=== PATIENT | male | born 1980 ===

== ENCOUNTER 2018-02-28 10:26 | Emergency (ER) | payer OTHER ==
[2018-02-28 10:35] VITALS: TEMP 97.9; O2SAT 96
[2018-02-28] MEDS ORDERED: Lidocaine 5% Patch TD STA (11:18)
--- NOTE | 2018-02-28 11:21 | C.PDOC ---
History Of Present Illness 37 year old male presents to the ER with a complaint of exacerbation of his chronic lower back pain. 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 Patient reports he has been taking advil at home with minimal relief. Denies recent injury, back surgery, weakness, numbness, dysuria, hematuria, or incontinence. Time Seen by Provider: 02/28/18 10:39 Chief Complaint (Nursing): Back Pain History Per: Patient History/Exam Limitations: no limitations Onset/Duration Of Symptoms: Days Current Symptoms Are (Timing): Still Present Quality Of Discomfort: Unable To Describe Previous Symptoms: Back Pain, Chronic Pain Associated Symptoms: None Exacerbating Factor(s): Nothing Recent travel outside of the [place]: No Past Medical History Reviewed: Historical Data, Nursing Documentation, Vital Signs Vital Signs: Last Vital Signs Temp 97.9 F 02/28/18 10:33 Pulse 90 02/28/18 12:30 Resp 18 02/28/18 12:30 BP 135/81 02/28/18 12:30 Pulse Ox 96 02/28/18 12:30 - Medical History PMH: Back Problems Surgical History: No Surg Hx Family History: States: Unknown Family Hx - Social History Hx Alcohol Use: Yes Hx Substance Use: No - Immunization History Hx Influenza Vaccination: No Review Of Systems Genitourinary: Negative for: Dysuria, Incontinence, Hematuria Musculoskeletal: Positive for: Back Pain Neurological: Negative for: Weakness, Numbness Physical Exam - Physical Exam Appears: Non-toxic, No Acute Distress Skin: Normal Color, Warm, Dry Head: Atraumatic, Normacephalic Eye(s): bilateral: Normal Inspection, EOMI Neck: Normal ROM Chest: Symmetrical Back: No CVA Tenderness, No Vertebral Tenderness, No Paraspinal Tenderness, No Other (Bulging, swelling, or rash) Extremity: Normal ROM (x4) Neurological/Psych: Oriented x3, Normal Speech, Normal Motor, Normal Sensation Gait: Steady ED Course And Treatment O2 Sat by Pulse Oximetry: 96 (Room air) Pulse Ox Interpretation: Normal Medical Decision Making Medical Decision Making: Plan: * Toradol * Valium * Lidoderm Re-Eval: Patient states pain mildly improved. He is ambulatory with steady gait and minimal discomfort. Rx given. Recommend rest, heat and anagesics. Work note provided. Disposition Counseled Patient/Family Regarding: Diagnosis, Need For Followup, Rx Given - Disposition Referrals: Carmelita Heaton MD [Staff Provider] - Disposition: HOME/ ROUTINE Disposition Time: 12:25 Condition: IMPROVED Additional Instructions: Follow up with the clinic in 2-5 days for further evaluation. Take medications as prescribed. Return to the emergency department at any time if symptoms persist or worsen. 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 - Scribe Statement The provider has reviewed the documentation as recorded by the Scribpaul Cordero All medical record entries made by the Leliaibpaul were at my direction and personally dictated by me. I have reviewed the chart and agree that the record accurately reflects my personal performance of the history, physical exam, medical decision making, and the department course for this patient. I have also personally directed, reviewed, and agree with the discharge instructions and disposition.
[2018-02-28] MEDS ORDERED: Lidocaine 5% Patch TD ONE (11:36)
[2018-02-28 12:31] VITALS: BP 135/81; PULSE 90; RESP 18
== END 2018-02-28 12:31 | disposition home or self-care (01) ==
LOC: C.ER 10:26
DX: S39.012A Strain of muscle, fascia and tendon of lower back, initial encounter (principal); X58.XXXA Exposure to other specified factors, initial encounter
CPT/HCPCS: 96372; 99283; J1885

== ENCOUNTER 2018-03-18 12:08 | Emergency (ER) | payer OTHER ==
[2018-03-18 12:15] VITALS: RESP 18; TEMP 98.7
[2018-03-18] MEDS ORDERED: Lidocaine 5% Patch TD STA (12:32)
[2018-03-18] MEDS ORDERED: Lidocaine 5% Patch TD ONE (12:42)
--- NOTE | 2018-03-18 12:56 | C.PDOC ---
History Of Present Illness 37-year-old male, presents to the emergency department with complaints of lower back pain, that started after heavy lifting at work. Patient states he ran out of pain meds, and took Tramadol which didn't help and made him feel nauseated. He denies numbness/weakness, incontinence, or any other associated symptoms. No other complaints at this time. Time Seen by Provider: 03/18/18 12:21 Chief Complaint (Nursing): Back Pain History Per: Patient History/Exam Limitations: no limitations Past Medical History Reviewed: Historical Data, Nursing Documentation, Vital Signs Vital Signs: Last Vital Signs Temp 98.7 F 03/18/18 13:39 Pulse 86 03/18/18 13:39 Resp 18 03/18/18 13:39 BP 124/68 03/18/18 13:39 Pulse Ox 100 03/18/18 13:39 - Medical History PMH: Back Problems Family History: States: No Known Family Hx - Social History Hx Alcohol Use: Yes Hx Substance Use: No - Immunization History Hx Influenza Vaccination: No Review Of Systems Constitutional: Negative for: Fever Musculoskeletal: Positive for: Back Pain Neurological: Negative for: Weakness, Numbness Physical Exam - Physical Exam Appears: Non-toxic, No Acute Distress Skin: Normal Color, Warm, Dry, No Rash Head: Normacephalic Eye(s): bilateral: PERRL Nose: Normal Oral Mucosa: Moist Lips: Normal Appearing Neck: Normal ROM Chest: Symmetrical Cardiovascular: Rhythm Regular, No Murmur Respiratory: Normal Breath Sounds, No Accessory Muscle Use Back: Paraspinal Tenderness (lumbar) Extremity: Normal ROM, No Deformity, No Swelling Neurological/Psych: Oriented x3, Normal Speech ED Course And Treatment O2 Sat by Pulse Oximetry: 99 (RA) Pulse Ox Interpretation: Normal Medical Decision Making Medical Decision Making: Impression: Low back pain Plan: * Lidoderm, Toradol, Valium * XR LS Spine Reassess and Disposition Patient reported relief of pain. Patient remained well in no distress. Rx given. Advise follow up in the clinic Disposition Counseled Patient/Family Regarding: Diagnosis, Need For Followup, Rx Given - Disposition Referrals: [facility] [Outside] [facility] [Outside] Disposition: HOME/ ROUTINE Disposition Time: 13:23 Condition: STABLE Additional Instructions: You can apply heat to area Take Tylenol 500mg for any pain Take Flexeril every 8 hours as needed for muscular pain and spasm, caution may cause drowsiness Prescriptions: Cyclobenzaprine [Cyclobenzaprine HCl] 10 mg PO TID #21 tab Naproxen [Naprosyn] 1 tab PO BID PRN #25 tab PRN Reason: Pain Instructions: Low Back Pain in Adults Forms: [employer] [facility] (Cayman Islander) - POA Present On Arrival: None - Clinical Impression Clinical Impression: Low back pain - Scribe Statement The provider has reviewed the documentation as recorded by the Scribe (Daly Cortés) All medical record entries made by the Scribe were at my direction and personally dictated by me. I have reviewed the chart and agree that the record accurately reflects my personal performance of the history, physical exam, medical decision making, and the department course for this patient. I have also personally directed, reviewed, and agree with the discharge instructions and disposition.
[2018-03-18 13:40] VITALS: BP 124/68; PULSE 86
--- NOTE | 2018-03-18 14:26 | RAD ---
PROCEDURE: Radiographs of the Lumbar Spine. HISTORY: Low back pain COMPARISON: No prior. FINDINGS: BONES: Normal alignment. No listhesis. No fracture. DISC SPACES: Disc space heights maintained. Small marginal anterior osteophytes formation seen along the anterior superior corners of the L5 and L4 segments. Facet joints are mildly hypertrophic at the L5-S1 through the L2-L3 levels in decreasing order of severity OTHER FINDINGS: None. IMPRESSION: No acute fractures. Mild degenerative spondylosis as above
[2018-03-18 14:52] VITALS: O2SAT 99
== END 2018-03-18 13:40 | disposition home or self-care (01) ==
LOC: C.ER 12:08
DX: M54.5 Low back pain (principal)
CPT/HCPCS: 72100; 96372; 99284; J1885

== ENCOUNTER 2018-05-13 23:29 | Emergency (ER) | payer OTHER ==
--- NOTE | 2018-05-14 00:28 | C.PDOC ---
History Of Present Illness 37 year old male with PMHx of chronic back pain presents to the ED c/o lower back pain for the past 2-3 days. Patient reports he recently relocated from [place] and has no PMD at this time. Patient has been seen twice in the ED for similar complaints and given medication here. Patient reports OTC pain medication no longer helping with pain. Patient is also c/o nasal congestion, itchy throat and is requesting allergy medications. Patient denies fever, chill , nausea, vomit, diarrhea, rash. Time Seen by Provider: 05/14/18 00:03 Chief Complaint (Nursing): Back Pain History Per: Patient History/Exam Limitations: no limitations Onset/Duration Of Symptoms: Days Current Symptoms Are (Timing): Still Present Quality Of Discomfort: "Pain" Previous Symptoms: Back Pain Recent travel outside of the [facility]: No Additional History Per: Patient Past Medical History Reviewed: Historical Data, Nursing Documentation, Vital Signs Vital Signs: Last Vital Signs Temp 98.1 F 05/14/18 00:56 Pulse 97 H 05/14/18 00:56 Resp 14 05/14/18 00:56 BP 110/70 05/14/18 00:56 Pulse Ox 98 05/14/18 00:56 - Medical History PMH: Back Problems Surgical History: No Surg Hx Family History: States: Unknown Family Hx - Social History Hx Alcohol Use: Yes Hx Substance Use: No - Immunization History Hx Influenza Vaccination: No Review Of Systems Constitutional: Negative for: Fever, Chills ENT: Positive for: Nose Congestion, Throat Pain. Negative for: Nose Discharge Cardiovascular: Negative for: Chest Pain, Palpitations Respiratory: Negative for: Cough, Shortness of Breath Gastrointestinal: Negative for: Nausea, Vomiting, Abdominal Pain Genitourinary: Negative for: Incontinence Musculoskeletal: Positive for: Back Pain Physical Exam - Physical Exam Appears: Non-toxic, No Acute Distress Skin: Normal Color, Warm, Dry Head: Atraumatic, Normacephalic Eye(s): bilateral: Normal Inspection Oral Mucosa: Moist Neck: Normal ROM, Supple Chest: Symmetrical Cardiovascular: Rhythm Regular Respiratory: Normal Breath Sounds, No Rales, No Rhonchi, No Wheezing Gastrointestinal/Abdominal: Soft, No Tenderness, No Guarding, No Rebound Back: Paraspinal Tenderness (paralumbar b/l), No Straight Leg Raising Extremity: Normal ROM, No Tenderness, No Swelling Neurological/Psych: Oriented x3, Normal Speech, Normal Motor, Normal Sensation Gait: Steady ED Course And Treatment O2 Sat by Pulse Oximetry: 97 (ON RA) Pulse Ox Interpretation: Normal Progress Note: Plan: - Flexeril 10 mg PO. - Toradol 30 mg IM. Patient was strongly advised to follow up with clinic. On reassessment, patient is resting comfortably, with improvement of back pain. Patient remains afebrile, with no bony tenderness, extremity numbness or weakness, or abdominal pain. Patient is ambulatory in the emergency department with no signs of discomfort. Patient was advised to follow up with physician/clinic in 1-2 days. Disposition Counseled Patient/Family Regarding: Diagnosis, Need For Followup, Rx Given - Disposition Referrals: [facility] [Outside] Disposition: HOME/ ROUTINE Disposition Time: 00:24 Condition: STABLE Additional Instructions: Take medications prescribed Follow up in clinic Return to ER if worse Prescriptions: Cetirizine HCl [Zyrtec] 10 mg PO DAILY #20 capsule Cyclobenzaprine [Cyclobenzaprine HCl] 10 mg PO HS #10 tab Ibuprofen [Motrin] 600 mg PO Q6H #24 tab Mometasone Furoate [Nasonex] 1 spray NS BID #1 bottle Forms: [employer] (Maltese) - Clinical Impression Clinical Impression: Low back pain, Allergic rhinitis - 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 - Scribe Statement The provider has reviewed the documentation as recorded by the Scribe Og Espinoza All medical record entries made by the Scribe were at my direction and personally dictated by me. I have reviewed the chart and agree that the record accurately reflects my personal performance of the history, physical exam, medical decision making, and the department course for this patient. I have also personally directed, reviewed, and agree with the discharge instructions and disposition.
[2018-05-14 00:58] VITALS: BP 110/70; PULSE 97; RESP 14; TEMP 98.1
[2018-05-14 02:37] VITALS: O2SAT 97
== END 2018-05-14 00:56 | disposition home or self-care (01) ==
LOC: C.ER 23:29 → SUPCPDRO 23:29 → C.ER 05-14 00:56
DX: M54.5 Low back pain (principal); J30.9 Allergic rhinitis, unspecified
CPT/HCPCS: 96372; 99284; J1885

== ENCOUNTER 2018-07-04 21:49 | Emergency (ER) | payer OTHER ==
[2018-07-04 21:57] VITALS: BP 133/73; PULSE 80; RESP 14; TEMP 98.3; O2SAT 98
--- NOTE | 2018-07-04 23:00 | C.PDOC ---
History Of Present Illness intermittent x 5 mo worse at work bc heavy lifting. no wkness numbness incont mbenthol and uk otc meds no relief. ex paralui,mbar tend bl no vert spine tend nl strength no straight leg coft in er nl gait fu clinic and meds for home. Time Seen by Provider: 07/04/18 22:08 Chief Complaint (Nursing): Back Pain Past Medical History Vital Signs: Last Vital Signs Temp 98.3 F 07/04/18 21:54 Pulse 80 07/04/18 21:54 Resp 14 07/04/18 21:54 BP 133/73 07/04/18 21:54 Pulse Ox 98 07/04/18 21:54 - Medical History PMH: Back Problems Family History: States: Unknown Family Hx - Social History Hx Alcohol Use: Yes Hx Substance Use: No - Immunization History Hx Influenza Vaccination: No ED Course And Treatment O2 Sat by Pulse Oximetry: 98 Disposition - Disposition Forms: [employer] (Chinese)
--- NOTE | 2018-07-04 23:03 | C.PDOC ---
History Of Present Illness 37yo male, comes to ER for evaluation of intermittent lower back pain x 5 months. Patient states the pain recently worsened as he was doing heavy lifting at work. He denies any trauma, weakness, numbness, bowel/bladder incontinence. Patient used a menthol cream and took unknown OTC pain medications with no relief. No other complaints. Time Seen by Provider: 07/04/18 22:08 Chief Complaint (Nursing): Back Pain History Per: Patient History/Exam Limitations: no limitations Onset/Duration Of Symptoms: Intermittent Episodes Current Symptoms Are (Timing): Still Present Quality Of Discomfort: "Pain" Associated Symptoms: None. denies: Incontinence, New Weakness, New Numbness Additional History Per: Patient Past Medical History Reviewed: Historical Data, Nursing Documentation, Vital Signs Vital Signs: Last Vital Signs Temp 98.3 F 07/04/18 21:54 Pulse 80 07/04/18 21:54 Resp 14 07/04/18 21:54 BP 133/73 07/04/18 21:54 Pulse Ox 98 07/04/18 23:05 - Medical History PMH: Back Problems Surgical History: No Surg Hx Family History: States: Unknown Family Hx - Social History Hx Alcohol Use: Yes Hx Substance Use: No - Immunization History Hx Influenza Vaccination: No Review Of Systems Except As Marked, All Systems Reviewed And Found Negative. Genitourinary: Negative for: Dysuria, Incontinence, Hematuria Musculoskeletal: Positive for: Back Pain Neurological: Negative for: Weakness, Numbness Physical Exam - Physical Exam Appears: Non-toxic, No Acute Distress Skin: Normal Color Head: Atraumatic, Normacephalic Eye(s): bilateral: Normal Inspection Neck: Supple Chest: Symmetrical Cardiovascular: Rhythm Regular Respiratory: Normal Breath Sounds Back: No CVA Tenderness, No Vertebral Tenderness, Paraspinal Tenderness ( paralumbar tenderness), No Straight Leg Raising Extremity: Normal ROM, No Tenderness, No Pedal Edema, No Deformity Neurological/Psych: Oriented x3, Normal Motor, Normal Sensation Gait: Steady ED Course And Treatment O2 Sat by Pulse Oximetry: 98 (RA) Pulse Ox Interpretation: Normal Progress Note: Patient noted to be in no acute distress in ER. Patient given prescription for pain medications and instructed to follow up in clinic in 2-3 days. Disposition Counseled Patient/Family Regarding: Diagnosis, Need For Followup, Rx Given - Disposition Referrals: 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 - Scribe Statement The provider has reviewed the documentation as recorded by the Angel Easton Provider Attestation: All medical record entries made by the Angel were at my direction and personally dictated by me. I have reviewed the chart and agree that the record accurately reflects my personal performance of the history, physical exam, medical decision making, and the department course for this patient. I have also personally directed, reviewed, and agree with the discharge instructions and disposition.
== END 2018-07-04 23:11 | disposition home or self-care (01) ==
LOC: C.ER 21:49
DX: M54.5 Low back pain (principal)

== ENCOUNTER 2018-08-21 13:02 | Emergency (ER) | payer OTHER ==
[2018-08-21 13:15] VITALS: BP 128/52; PULSE 90; RESP 16; TEMP 98.1; O2SAT 98
[2018-08-21] MEDS ORDERED: Bacitracin 500 Units/gm Oint Foilpak UD TOP ONE (13:39)
[2018-08-21] MEDS ORDERED: Bacitracin 500 Units/gm Oint Foilpak UD ONE (13:53)
--- NOTE | 2018-08-21 14:19 | C.PDOC ---
History Of Present Illness 37 y/o male presents to ED with c/o right ankle pain after an armoire fell on it while moving furniture just prior to arrival. Denies leg weakness, numbness or any other complaints at this time. Tetanus UTD- 2 years ago Time Seen by Provider: 08/21/18 13:17 Chief Complaint (Nursing): Abnormal Skin Integrity History Per: Patient History/Exam Limitations: no limitations Onset/Duration Of Symptoms: Hrs Current Symptoms Are (Timing): Still Present Past Medical History Reviewed: Historical Data, Nursing Documentation, Vital Signs Vital Signs: Last Vital Signs Temp 98.1 F 08/21/18 13:13 Pulse 90 08/21/18 13:13 Resp 16 08/21/18 13:13 BP 128/52 L 08/21/18 13:13 Pulse Ox 98 08/21/18 13:13 - Medical History PMH: Back Problems Surgical History: No Surg Hx Family History: States: No Known Family Hx - Social History Hx Alcohol Use: Yes Hx Substance Use: No - Immunization History Hx Tetanus Toxoid Vaccination: Yes Hx Influenza Vaccination: No Review Of Systems Except As Marked, All Systems Reviewed And Found Negative. Musculoskeletal: Positive for: Foot Pain Skin: Negative for: Rash Neurological: Negative for: Weakness, Numbness Physical Exam - Physical Exam Appears: Non-toxic, No Acute Distress Skin: Warm, Dry, No Rash Head: Atraumatic, Normacephalic Eye(s): bilateral: Normal Inspection, EOMI Oral Mucosa: Moist Neck: Normal ROM, Supple Chest: Symmetrical Respiratory: No Accessory Muscle Use Extremity: Normal ROM, Tenderness (anterior ankle), No Calf Tenderness, Capi llary Refill (<2 seconds), No Deformity, Other (abrasion to distal lower leg. No discharge noted) Pulses: Left Dorsalis Pedis: Normal, Right Dorsalis Pedis: Normal Neurological/Psych: Oriented x3, Normal Motor, Normal Sensation ED Course And Treatment O2 Sat by Pulse Oximetry: 98 (ra) Pulse Ox Interpretation: Normal - Other Rad R Ankle XR X-Ray: Interpreted by Me, Viewed By Me Interpretation: No fx or dislocation Progress Note: Area was cleansed and dressed. Discussed wound care and signs of concern. Germain wrap and aircast applied by press technician. Instructed RICE and follow up with ortho in 1-2 days. Disposition - Disposition Referrals: Sridhar Cortés MD [Staff Provider] - Disposition: HOME/ ROUTINE Disposition Time: 14:49 Condition: STABLE Additional Instructions: Rest,ice and elevate the area. Watch for signs of infection including redness, swelling and discharge. Follow up with bone doctor in 1-2 days. Descansa, hielo y eleva la elysia. Observe si hay signos de infeccin, mago enrojecimiento, hinchazn y secrecin. Seguimiento con jcarlos amy en 1-2 marquez. Prescriptions: Bacitracin OINT 1 applic TP BID #1 tube Ibuprofen [Motrin] 600 mg PO Q6 PRN #20 tab PRN Reason: Pain, Mild (1-3) Instructions: Ankle Sprain (DC) Forms: [employer] (Serbian) - Clinical Impression Clinical Impression: Ankle abrasion, Contusion - PA / SUPERINTENDENT DIVISION / Resident Statement MD/DO has reviewed & agrees with the documentation as recorded. - Scribe Statement The provider has reviewed the documentation as recorded by the Leliaibpaul Botello All medical record entries made by the Leliaibpaul were at my direction and personally dictated by me. I have reviewed the chart and agree that the record accurately reflects my personal performance of the history, physical exam, medical decision making, and the department course for this patient. I have also personally directed, reviewed, and agree with the discharge instructions and disposition.
--- NOTE | 2018-08-21 14:39 | RAD ---
Date of service: 08/21/2018 PROCEDURE: Right Ankle Radiographs. HISTORY: trauma COMPARISON: None FINDINGS: BONES: Normal. No fracture. JOINTS: Normal. No osteoarthritis. Ankle mortise maintained. Talar dome intact SOFT TISSUES: Normal. OTHER FINDINGS: None. IMPRESSION: Normal right ankle radiographs.
== END 2018-08-21 15:03 | disposition home or self-care (01) ==
LOC: C.ER 13:02
DX: S90.511A Abrasion, right ankle, initial encounter (principal); S90.01XA Contusion of right ankle, initial encounter; W22.8XXA Striking against or struck by other objects, initial encounter

== ENCOUNTER 2018-11-10 11:27 | Emergency (ER) | payer OTHER ==
[2018-11-10 11:39] VITALS: RESP 18
--- NOTE | 2018-11-10 12:58 | RAD ---
Date of service: 11/10/2018 PROCEDURE: Cervical Spine Radiographs. HISTORY: Pain. COMPARISON: None available. FINDINGS: BONES: There is normal alignment of the cervical vertebral bodies. There is normal cervical lordosis. There is no acute fracture or traumatic anterior listhesis. The craniocervical junction is normal. The atlantoaxial joint is normal. DISC SPACES: The disc heights are maintained. There is mild anterior spurring at C6. SOFT TISSUES: Normal. No prevertebral soft tissue swelling. OTHER FINDINGS: None. IMPRESSION: No acute fracture or traumatic anterior listhesis.
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
[2018-11-10 13:40] VITALS: BP 134/81; PULSE 82; TEMP 98.3
[2018-11-10 14:12] VITALS: O2SAT 95
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
== END 2018-11-10 13:38 | disposition home or self-care (01) ==
LOC: C.ER 11:27
DX: S39.012A Strain of muscle, fascia and tendon of lower back, initial encounter (principal); V59.59XA Passenger in pick-up truck or van injured in collision with other motor vehicles in traffic accident, initial encounter; Y92.410 Unspecified street and highway as the place of occurrence of the external cause

== ENCOUNTER 2018-11-26 17:22 | Emergency (ER) | payer OTHER ==
[2018-11-26 18:04] VITALS: BMI 20.3
[2018-11-26 18:07] VITALS: RESP 18; O2SAT 99
--- NOTE | 2018-11-26 19:33 | C.PDOC ---
History Of Present Illness 37 year old male presents to the ED for evaluation of subjective fever, chills, generalized body aches, cough, nausea, and diarrhea which began one week ago. Patient reports sick contact with his nephew, who was recently diagnosed with Flu. Patient reports he started experiencing pain to his right ear, which prompted visit. Patient denies changes in PO intake. HPI: Influenza Chief Complaint: Flu-like Symptoms History Per: Patient Exam Limitations: no limitations Onset/Duration Of Symptoms: Days (one week ) Symptoms include: fever Past Medical History Reviewed: Historical Data, Nursing Documentation, Vital Signs Vital Signs: Last Vital Signs Temp 99.5 F 11/26/18 18:03 Pulse 88 11/26/18 18:03 Resp 18 11/26/18 18:03 BP 114/75 11/26/18 18:03 Pulse Ox 99 11/26/18 18:03 - Medical History PMH: Back Problems Surgical History: No Surg Hx Family History: States: Unknown Family Hx - Social History Hx Alcohol Use: Yes Hx Substance Use: No - Immunization History Hx Tetanus Toxoid Vaccination: Yes Hx Influenza Vaccination: No Hx Pneumococcal Vaccination: No Review Of Systems Constitutional: Positive for: Fever, Chills ENT: Positive for: Ear Pain (right ) Respiratory: Positive for: Cough Musculoskeletal: Positive for: Other (body aches ) Physical Exam - Physical Exam Appears: Non-toxic, No Acute Distress Skin: Normal Color, Warm, Dry Head: Atraumatic, Normacephalic Eye(s): bilateral: Normal Inspection Ear(s): Left: Normal, Right: TM Erythema (bright red, bulging ) Nose: Normal, No Discharge Oral Mucosa: Moist Throat: Normal, No Erythema, No Exudate Neck: Supple Chest: Symmetrical, No Deformity, No Tenderness Cardiovascular: Rhythm Regular, No Murmur Respiratory: Normal Breath Sounds, No Rales, No Rhonchi, No Wheezing Extremity: Normal ROM, Capillary Refill (less than 2 seconds ) Neurological/Psych: Oriented x3, Normal Speech, Normal Cognition - ECG O2 Sat by Pulse Oximetry: 99 - Progress ED Course And Treament: Flu swab ordered. resulted negative. Tamiflu PO and Amoxicillin PO given. On reassessment, patient is resting comfortably, showing no signs of distress and is stable for discharge. Patient is requesting a work note. Patient advised to f/u with PMD within 1-2 days for further evaluation. Disposition - Disposition Disposition: HOME/ ROUTINE Disposition Time: 19:31 Condition: STABLE Additional Instructions: Follow up with PMD within 1-2 day. Return to ED if feel worse. 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 - Scribe Statement The provider has reviewed the documentation as recorded by the Scribe (Connie Thomas) All medical record entries made by the Scribe were at my direction and personally dictated by me. I have reviewed the chart and agree that the record accurately reflects my personal performance of the history, physical exam, medical decision making, and the department course for this patient. I have also personally directed, reviewed, and agree with the discharge instructions and disposition.
[2018-11-26 19:50] VITALS: BP 131/83; PULSE 76; TEMP 98.5
== END 2018-11-26 19:50 | disposition home or self-care (01) ==
LOC: C.ER 17:22
DX: H66.91 Otitis media, unspecified, right ear (principal)